=== PATIENT | female | born 1980 ===

== ENCOUNTER 2018-06-06 23:39 | Emergency (ER) | payer OTHER ==
[2018-06-06 23:47] VITALS: BP 90/65; PULSE 73; TEMP 97.9; O2SAT 100
[2018-06-07] MEDS ORDERED: Tdap Vaccine 0.5 ml Vial (10-64 yrs) IM ONE (00:19)
--- NOTE | 2018-06-07 00:37 | C.PDOC ---
History Of Present Illness 37-year-old female presents to the ED for evaluation after sustaining a laceration to her right middle finger from juicer earlier tonight. Patient denies extremity numbness/weakness or any other injuries at this time. Time Seen by Provider: 06/07/18 00:17 Chief Complaint (Nursing): Abnormal Skin Integrity History Per: Patient History/Exam Limitations: no limitations Onset/Duration Of Symptoms: Hrs Current Symptoms Are (Timing): Still Present Location Of Injury: Right: Hand (middle finger ) Quality Of Symptoms: Painful Additional History Per: Patient Past Medical History Reviewed: Historical Data, Nursing Documentation, Vital Signs Vital Signs: Last Vital Signs Temp 97.9 F 06/06/18 23:44 Pulse 73 06/06/18 23:44 Resp 18 06/06/18 23:44 BP 90/65 L 06/06/18 23:44 Pulse Ox 100 06/06/18 23:44 - Medical History PMH: No Chronic Diseases Surgical History: No Surg Hx Family History: States: Unknown Family Hx - Social History Hx Alcohol Use: No Hx Substance Use: No Review Of Systems Constitutional: Negative for: Fever, Chills, Weakness Skin: Positive for: Other (laceration to tip of right middle finger ). Negative for: Rash Neurological: Negative for: Weakness, Numbness, Dizziness Physical Exam - Physical Exam Appears: Non-toxic, No Acute Distress Skin: Normal Color, Warm, No Rash Head: Atraumatic, Normacephalic Extremity: Normal ROM, No Tenderness, Capillary Refill (less than 2 seconds ), No Deformity, No Swelling, Other (laceration to distal aspect of right 3rd digit, slight to distal aspect of the nail. no damage to nailbed ) Pulses: Left Radial: Normal, Right Radial: Normal Neurological/Psych: Oriented x3, Normal Cranial Nerves (grossly intact ), Normal Motor, Normal Sensation ED Course And Treatment O2 Sat by Pulse Oximetry: 100 (on RA) Pulse Ox Interpretation: Normal Medical Decision Making Medical Decision Making: Tetanus IM administered. Surgiseal and bandage applied, patient tolerated well with no bleeding. On reassessment, patient is resting comfortably, showing no signs of distress and is stable for discharge. Patient is advised wound care and follow-up instructions. 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 - Scribe Statement The provider has reviewed the documentation as recorded by the Scribe (Oneyda Jones) All medical record entries made by the Scribe were at my direction and personally dictated by me. I have reviewed the chart and agree that the record accurately reflects my personal performance of the history, physical exam, medical decision making, and the department course for this patient. I have also personally directed, reviewed, and agree with the discharge instructions and disposition.
[2018-06-07 00:40] VITALS: RESP 20
== END 2018-06-07 00:39 | disposition home or self-care (01) ==
LOC: C.ER 23:39
DX: S61.312A Laceration without foreign body of right middle finger with damage to nail, initial encounter (principal); W45.8XXA Other foreign body or object entering through skin, initial encounter